=== PATIENT | male | born 1995 | race Two or more races ===

== ENCOUNTER 2017-05-04 13:35 | Emergency (ER) | payer MEDICAID ==
[~2017-05-04] VITALS: Ht 185.4 cm; Wt 68.0 kg
[~2017-05-04 13:35] MED LIST: DIVA250T6; DIVA500T53 PO
[2017-05-04] MEDS ORDERED: LORazepam 2MG/ML-1ML VIAL IV ONE (14:00)
[2017-05-04 15:39] VITALS: BP 110/73
== END 2017-05-04 16:11 | disposition home or self-care (01) ==
LOC: EDUNIT# 13:35 → ER 13:35
DX: G40.909 Epilepsy, unspecified, not intractable, without status epilepticus (principal); F17.210 Nicotine dependence, cigarettes, uncomplicated; F12.10 Cannabis abuse, uncomplicated; Z79.899 Other long term (current) drug therapy
CPT/HCPCS: 36415; 80164; 94761; 96374; 99284; J2060

== ENCOUNTER → 2021-03-06 | Outpatient (CLI) | payer MEDICAID ==
[~2021-03-06] MED LIST changes: +DIVA1TAB58; -DIVA250T6; +DIVA500T2 PO; -DIVA500T53 PO
[2021-03-06 09:32] LABS: Basophils # (auto) 0 10 ^3/uL (0-0.2); Basophils % (auto) 0.2 % (0.0-2.0); Eosinophils # (auto) 0.2 10 ^3/uL (0-0.8); Eosinophils % (auto) 3.6 % (0.0-7.0); Hematocrit 41.5 % (41.0-53.0); Hemoglobin 13.8 g/dL (13.5-17.5); Lymphocytes # (auto) 2.2 10 ^3/uL (0.4-5.4); Lymphocytes % (auto) 37.3 % (10.0-50.0); Mean Corpuscular Hgb Conc. 33.2 g/dL (32.0-36.0); Mean Corpuscular Volume 90.5 fL (80.0-100.0); Monocytes # (auto) 0.5 10 ^3/uL (0-1.3); Monocytes % (auto) 7.8 % (0.0-12.0); Neutrophils % (auto) 51.1 % (37.0-80.0); Platelet Count (auto) 216 10^3/uL (140-450); Red Blood Cells 4.59 10^6/uL (4.5-5.90); Red Cell Distribution Width 13.8 % (11.8-14.3); White Blood Cell 5.9 10^3/uL (4.4-10.8)
[2021-03-06 09:49] LABS: Potassium 4.3 mmol/L (3.5-5.1)
[2021-03-06 09:56] LABS: BUN/Creatinine Ratio 15.9; Bilirubin, Total 0.2 mg/dL (0.2-1.0)
== END | disposition home or self-care (01) ==
LOC: LAB 08:26
PROVIDERS: ATTEND Internal Medicine
DX: G40.89 Other seizures (principal)
CPT/HCPCS: 36415; 80053; 80061; 82306; 82542; 83036; 84443; 85025; 86200; 86431